=== PATIENT | male | born 1955 | race Caucasian/White ===

== ENCOUNTER 2020-02-13 18:38 | Emergency (ER) | payer BC ==
[~2020-02-13] VITALS: Ht 190.5 cm; Wt 93.9 kg
[2020-02-13 18:53] VITALS: BP 171/94
[2020-02-13] MEDS ORDERED: Tetanus/Diptheria/Pertussis IM ONE (19:15)
--- NOTE | 2020-02-13 20:06 | Emergency Room Report ---
History of Present Illness General Chief Complaint: Pain Source: Patient (Radha Schwartz) Present Illness HPI 64-year-old male with no significant past medical positive findings take medication, here secondary to a splinter in right hand that happened earlier today. Patient was in urgent care prior to coming here and was told that he is a CT scan of hand has the splint may be deep as patient is unable to make a fist with his hand. Denies any tingling and numbness in the area. Minimal bleeding is noted. Has not taken any medication for symptom relief. Is not up- to-date with tetanus shot. Denies all other injuries. Has full range of motion of hand and wrist. Denies any pain radiation. Reports that the pain is localized to the area where the splint is. 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 COVID-19 Screening: Negative COVID-19 COVID-19 Testing Source: nasopharyn (Radha Schwartz) Patient History Past Medical History: see triage record Past Surgical History: none Pertinent Family History: none Immunizations: other - Tdap given today Reviewed Nursing Documentation: PMH: Agreed; PSxH: Agreed (Radha Schwartz) Nursing Documentation-PMH Past Medical History: No History, Except For (Radha Schwartz) Review of Systems All Other Systems: negative except mentioned in HPI (Radha Schwartz) Physical Exam Vital Signs Date Time Temp Pulse Resp B/P (MAP) Pulse Ox O2 Delivery O2 Flow Rate FiO2 02/13/20 18:49 97.9 85 19 171/94 (119) 100 Room Air Sp02 EP Interpretation: reviewed, normal General Appearance: no apparent distress, alert, GCS 15, non-toxic Head: normocephalic, atraumatic Eyes: bilateral eye normal inspection, bilateral eye PERRL ENT: hearing grossly normal, normal pharynx, no angioedema, normal voice Neck: full range of motion, supple/symm/no masses Respiratory: chest non-tender, lungs clear, normal breath sounds, speaking full sentences Cardiovascular #1: regular rate, rhythm, no edema Cardiovascular #2: 2+ carotid (R), 2+ carotid (L), 2+ radial (R), 2+ radial (L) Gastrointestinal: normal bowel sounds, non tender, soft, non-distended, no guarding, no rebound Genitourinary: no CVA tenderness Musculoskeletal: back normal Neurologic: alert, motor strength/tone normal, oriented x3, sensory intact, responsive, speech normal Psychiatric: judgement/insight normal, memory normal, mood/affect normal, no suicidal/homicidal ideation Skin: other - Splint to right home Lymphatic: normal inspection (Radha Schwartz) Medical Decision Making PA Attestation All diagnosis and treatment plans were discussed and reviewed by my supervising physician Dr. Cha (Radha Schwartz) Diagnostic Impression: Primary Impression: Splinter of hand Additional Impression: Puncture wound ER Course 64-year-old male with no significant past medical positive findings take medication, here secondary to a splinter in right hand that happened earlier today. Patient was in urgent care prior to coming here and was told that he is a CT scan of hand has the splint may be deep as patient is unable to make a fist with his hand. Denies any tingling and numbness in the area. Minimal bleeding is noted. Has not taken any medication for symptom relief. Is not up- to-date with tetanus shot. Denies all other injuries. Has full range of motion of hand and wrist. Denies any pain radiation. Reports that the pain is localized to the area where the splint is. Ddx considered but are not limited to : Cellulitis, splinter superficial,, splinter deep into the tendon, superficial infection, abscess Vital signs: are WNL, pt. is afebrile H&PE are most consistent with:deep FB right hand, puncture wound ORDERS: CT hand, x-ray, bactrim DS ED INTERVENTIONS: Tdap DISCHARGE: At this time pt. is stable for d/c to home. Will provide printed patient care instructions, and any necessary prescriptions. Care plan and follow up instructions have been discussed with the patient prior to discharge. Patient to take medication as directed, needs wound check in 12 to 24 hours, follow-up with hand surgeon infected if he did not see a hand surgeon and remove the splint. If worsening symptom return to the emergency room. Dr. Akbar was contacted and advised outpatient hand surgeon follow up (Radha Schwartz) ER Course Shared service note: I was consulted to see the PA regarding the patient's management and disposition. On a [id number] assessment with the patient, he is noted to have entry wound to the R palmar hand at the base of the index finger. Pt is HIV+ with remote history of cancer. He denies pressure injection injury, grease or paint gun. Patient is afebrile. There is no indication of cellulitis, abscess, or any kanaval signs to suggest FTS. He has preserved segmental motion (flexion/extension) of MCP, PIP, and DIP at the index finger. There is no visualized foreign body, but there is a small puncture wound at the base of the finger. Distally the patient has capillary refill <2 seconds and strong pulses. There is no pallor or pain out of proportion to exam. There is no significant swelling, deformity, or report of significant dislocation that subsequently reduced. No evidence of arterial occlusion or injury. Stat rad CT scan of the R hand does not show a radioopaque FB. I called the radiologist to discuss my concern for FB , but radiology disagrees. I conulted our ortho Sx programmer analyst consultant Dr Turner to discuss the patient's clinical exam and concern for wooden FB. He states that patient does not require admission/acute surgical removal of the foreign object at this time. Recommends outpatient follow up with hand surgeon in 1-2 days for removal. Pt was informed of the assembler surgical garment's recommendations, and that due to his immunosuppression with Hx of HIV and cancer, that the risk of opening the wound blindly in the non sterile environment of the ER outweighs the benefit at this time. Pt understands and is calling his PMD now for hand specialist follow up in the morning. We did talk about 12-24 hr wound check with PMD. Pt will be placed on oral abx. Tdap was updated Pt was counseled extensively on the need for urgent outpatient f/u within 24 hrs due to risk of infection, arthritis, or clinical disability. States he understands and will follow up in AM. Strict 911 return precautions discussed for hand infection. (Kennedi Cha D.O.) CT/MRI/US Diagnostic Results CT/MRI/US Diagnostic Results : Imaging Test Ordered: CT hand no contrast Impression TECHNIQUE: Axial computed tomography images of the right upper extremity without intravenous contrast. CTDI is 3.3 mGy and DLP is 88.6 mGy-cm. One or more of the following dose reduction techniques were used: automated exposure control, adjustment of the mA and/or kV according to patient size, use of iterative reconstruction technique. COMPARISON: No relevant prior studies available. FINDINGS: Bones/joints: No fracture. Degenerative changes. Soft tissues: No radiodense foreign body identified. Soft tissue edema. IMPRESSION: No radiodense foreign body identified. (Radha Schwartz) CT/MRI/US Diagnostic Results : Impression CT Hand wo Contrast RT EXAM: CT Right Upper Extremity Without Intravenous Contrast CLINICAL HISTORY: FB COMPARISON: No relevant prior studies available. FINDINGS: Bones/joints: No fracture. Degenerative changes. Soft tissues: No radiodense foreign body identified. Soft tissue edema. IMPRESSION: No radiodense foreign body identified. Communications: 02/13/20 20:30 Call From [facility] Dr. Petersen Dictated By: Shabbir Hodges MD (Kennedi Cha D.O.) Last Vital Signs Date Time Temp Pulse Resp B/P (MAP) Pulse Ox O2 Delivery O2 Flow Rate FiO2 02/13/20 18:53 97.9 77 19 171/94 100 Room Air (Radha Schwartz) Disposition: HOME, SELF-CARE Condition: Stable Scripts Trimethoprim/Sulfamethoxazole 160/800* (BACTRIM DS TABLET*) 1 Each Tablet 1 TAB ORAL TWICE A DAY for 10 Days, #20 TAB Prov: Radha Schwartz 02/13/20 Referrals: NON PHYSICIAN (PCP) Patient Instructions: Puncture Wound, [id number] Additional Instructions: Please follow up for wound re-check of your hand with your primary care doctor In 12-24 hrs You need to be referred to a hand specialist for foreign body removal within 1- 2 days. Take all antibiotics as prescribed. If you do not obtain prompt follow up for foreign body removal, you risk infection, clinical worsening, disability and arthritis as we have discussed. If you have any persistent or worsening symptoms, please return to the ER. Take all your HIV medications as prescribed. Radha Schwartz Feb 13, 2020 20:06 Kennedi Cha D.O. Feb 14, 2020 00:53
--- NOTE | 2020-02-13 20:26 | Diagnostic Imaging Report ---
EXAM: CT Right Upper Extremity Without Intravenous Contrast CLINICAL HISTORY: FB TECHNIQUE: Axial computed tomography images of the right upper extremity without intravenous contrast. CTDI is 3.3 mGy and DLP is 88.6 mGy-cm. One or more of the following dose reduction techniques were used: automated exposure control, adjustment of the mA and/or kV according to patient size, use of iterative reconstruction technique. COMPARISON: No relevant prior studies available. FINDINGS: Bones/joints: No fracture. Degenerative changes. Soft tissues: No radiodense foreign body identified. Soft tissue edema. IMPRESSION: No radiodense foreign body identified. <MYCVCSECTION> Communications: 02/13/20 20:30 Call From [facility] Dr. Petersen
[2020-02-13] MEDS ORDERED: BACTRIM DS TAB1 EAC1 ORAL (20:48)
[2020-02-13 21:00] VITALS: BP 171/94
== END 2020-02-13 21:00 | disposition home or self-care (01) ==
LOC: EMR 19:08
DX: S61.441A Puncture wound with foreign body of right hand, initial encounter (principal); M79.641 Pain in right hand; Z23 Encounter for immunization; Z88.0 Allergy status to penicillin; Z88.8 Allergy status to other drugs, medicaments and biological substances; X58.XXXA Exposure to other specified factors, initial encounter; Y92.9 Unspecified place or not applicable
CPT/HCPCS: 90471; 90715; 99284